=== PATIENT | female | born 1995 | race African-American/Black ===

== ENCOUNTER 2016-10-06 19:54 | Emergency (ER) | payer MEDICAID ==
[~2016-10-06] VITALS: Ht 172.7 cm; Wt 63.0 kg
[2016-10-06 21:08] VITALS: BP 138/80
== END 2016-10-07 01:30 | disposition home or self-care (01) ==
LOC: ER 20:23
DX: S13.9XXA Sprain of joints and ligaments of unspecified parts of neck, initial encounter (principal); S80.01XA Contusion of right knee, initial encounter; Z98.890 Other specified postprocedural states; V43.62XA Car passenger injured in collision with other type car in traffic accident, initial encounter; Y93.89 Activity, other specified; Y92.488 Other paved roadways as the place of occurrence of the external cause
CPT/HCPCS: 72125; 73564; 81025; 99284; L0172

== ENCOUNTER 2021-04-15 12:53 | Emergency (ER) | payer MEDICAID ==
[~2021-04-15] VITALS: Ht 177.8 cm; Wt 91.0 kg
[2021-04-15 12:54] VITALS: BP 111/73
== END 2021-04-15 17:19 | disposition left against medical advice (07) ==
LOC: ER 13:51
DX: Z53.21 Procedure and treatment not carried out due to patient leaving prior to being seen by health care provider (principal)
CPT/HCPCS: 99283